=== PATIENT | female | born 1990 | race Caucasian/White ===

== ENCOUNTER 2019-11-10 07:38 | Inpatient (IN) ==
[2019-11-10] MEDS ORDERED: OXYTOCIN 30 UNITS/500 ML BAG IV PRN ×3 (08:18→16:00)
[2019-11-10 08:45] LABS: Hematocrit (blood only) 36.7 % (37-47); Hemoglobin 12.5 g/dL (12.0-16.0); Mean Corpuscular Hemoglobin 33.4 pg (25-34); Mean Corpuscular Volume 98.1 fL (80-100); Mean Platelet Volume 10.7 fL (7.4-10.4); Platelet Count 183 K/uL (130-400); RDW Coefficient of Variation 13.5 % (11.5-14.5); RDW Standard Deviation 48.2 fL (36.4-46.3); Red Blood Count 3.74 M/uL (4.2-5.4); White Blood Count 10.04 K/uL (4.8-10.8)
[2019-11-10 08:51] LABS: Mean Corpuscular Hgb Conc 34.1 g/dL (32-36)
--- NOTE | 2019-11-10 08:57 | History & Physical Report ---
Date of Service November 10, 2019 Assessment & Plan (1) : Morris Marie is a 28 y/o female ; at 40 weeks 0 days via certain LMP; - previous history of precipitous delivery - will admit for induction of labor - will start Pitocin at 1 milliunit with advancement by 2 as needed for augmentation of labor - does want epidural for pain control Admission and Anticipated Discharge Date Admission Date: November 10, 2019 History of Present Illness Primary Care Provider: NO PCP Morris Marie is a 28 y/o female ; at 40 weeks 0 days via certain LMP; no complications with this ; frequently attended OB appointments; no contractions; good movement; no fluid loss; no vaginal blood loss Labs: (11/10/19) Blood type: A+ Antibody screen: negative H.5 Hct: 36.7 WBC: 10.04 Plt: 183 Rubella: immune VDRL/RPR: nonreactive Gonorrhea: not detected Chlamydia: not detected HIV: negative HbSAg: negative GBS negative passed Glucose tolerance x2 Allergies Allergy/AdvReac Type Severity Reaction Status Date / Time Sulfa (Sulfonamide Allergy Hives Verified 11/09/19 15:17 Antibiotics) Home Medications Home Medications Medication Instructions Recorded Confirmed Type prenat.vits,pasha,[id number] 1 tab PO DAILY 04/01/19 11/10/19 History Past Med/Surg History Medical History Encounter for anatomic survey Hx of ovarian cyst Subchorionic hemorrhage in first trimester Family History Mother Schizophrenia Social History Preferred Language: Stateless Communication Ability: Effective Beliefs That Will Affect Care: None marital status: marital status details: Jerry Marie (31) [phone] Current Living Situation: Spouse Current Living Situation Comment: Lives with and 2 daughters current occupational status: employed current occupation: teacher- [employer] Other Information That Helps Us Care for You: No Feels Safe at Home: Yes Safety Concerns: Feels Safe At This Time Smoking Status: Never smoker Do You Dip or Chew Tobacco: No ; Second Hand Exposure: No ; Tobacco Cessation Education Requested by Patient: No Hx Alcohol Use: No Hx Substance Use: No Review of Systems Review of Systems: Constitutional: denies fever; chills; sweats; headache Respiratory: denies shortness of breath, difficulty breathing Cardiac: denies chest pain; palpitations; chest pressure Breast: denies breast pain : denies dysuria Physical Exam Physical Exam: General: alert; oriented; no acute distress Cardiac: RRR; no m/g/r Respiratory: CTAB a/p; no wheezes/rales/rhonchi; no increased work of breathing; symmetrical chest rise; no respiratory distress Abdomen: soft; NT/ND; bowel sounds positive Lower extrem: no lower extremity edema or swelling; no deep calf pain; Cindi's sign negative b/l Genitourinary: OB Exam Monitor Tracing: + external FHT monitor used, + external uterine monitor used, + category I and + normal FHT variability deferred cervix check to Dr. Lynch's exam Results & Data Results & Data ([facility]) Vital Signs (Past 12 Hours) Vital Signs Temp Pulse Resp BP 11/10/19 07:57 36.7 C 81 16 113/74 11/10/19 07:46 81 113/74 Laboratory Results 11/10/19 Range/Units 08:32 WBC 10.04 (4.8-10.8) K/uL RBC 3.74 L (4.2-5.4) M/uL Hgb 12.5 (12.0-16.0) g/dL Hct 36.7 L (37-47) % MCV 98.1 (80-100) fL MCH 33.4 (25-34) pg MCHC 34.1 (32-36) g/dL RDW Std Deviation 48.2 H (36.4-46.3) fL RDW Coeff of Edda 13.5 (11.5-14.5) % Plt Count 183 (130-400) K/uL MPV 10.7 H (7.4-10.4) fL Medications Administered Current Inpatient Medications Lactated Ringer's (Lr) 1,000 mls @ 125 mls/hr IV .Q8H PRN; Protocol PRN Reason: L&D Protocol Stop: 11/12/19 08:17 Oxytocin (Pitocin) 30 units in 500 mls @ 333.333 mls/hr IV .Q1H30M PRN; Protocol PRN Reason: Bleeding Control Stop: 12/10/19 08:17 Oxytocin (Pitocin) 30 units in 500 mls @ 1 mls/hr IV .Q24H PRN; Protocol PRN Reason: Labor Induction/Augmentation Stop: 11/12/19 08:37 Supervising Physician Co-Signing Physician Notes Resident Physician Supervision Note: I interviewed and examined the patient. Discussed with Dr. Christianson and agree with findings and plan as documented in the note. Any exceptions or clarifications are listed here: admit for IOL for h/o rapid labor. Documented By: Jazzy Lynch DO Resident Activity Tracking Resident Involvement: Resident Care Provided Care Provided: OB Delivery
[2019-11-10] MEDS: LACTATED RINGER'S 1,000 ML IV PRN ×2 (09:23→11:53)
[2019-11-10] MEDS ORDERED: ePHEDrine sulfate 50 MG/ML AMP ONE (11:14)
[2019-11-10] MEDS ORDERED: BUPIVACAINE 0.25% 30 ML VIAL ONE (11:14)
[2019-11-10] MEDS ORDERED: fentaNYL citrate 100 MCG/2 ML VIAL ONE (11:14)
[2019-11-10] MEDS ORDERED: fentaNYL 2MCG/ML ROPIV 1.25MG/ML 100 ML BAG EPI ONE (11:15)
--- NOTE | 2019-11-10 11:46 | Anesthesiology Consultation ---
Date of Service November 10, 2019 Assessment & Plan Chart Review Chart Review: Acceptable Risk for Surgery and Patient NOT seen in Pre Admission Testing Consults Requested none ASA ASA2 Proposed Anesthesia Anesthesia Type: Labor Epidural Risk / Benefits Reviewed With: PT / POA / Parent / Guardian, Accepts Plan and Informed Consent Obtained History Height/Weight Height: 5 ft 6 in Weight: 67.472 kg Allergies Allergy/AdvReac Type Severity Reaction Status Date / Time Sulfa (Sulfonamide Allergy Hives Verified 11/09/19 15:17 Antibiotics) Medications Home Medications Medication Instructions Recorded Confirmed Last Taken prenat.vits,pasha,[id number] 1 tab PO DAILY 04/01/19 11/10/19 11/09/19 21:30 Active Medications Generic Name Dose Route Start Last Admin Trade Name Freq PRN Reason Stop Dose Admin Lactated Ringer's 1,000 mls @ 125 mls/hr 11/10/19 08:18 11/10/19 11:10 Lr IV 11/12/19 08:17 999 mls/hr .Q8H PRN Infusion L&D Protocol Protocol Oxytocin 30 units in 500 mls @ 7 mls/hr 11/10/19 08:38 11/10/19 11:06 Pitocin IV 11/12/19 08:37 0.42 units/hr .Q24H PRN 7 mls/hr Labor Induction/Augmentation Titration Protocol 0.42 UNITS/HR NPO Date Last Intake of Fluids: 11/10/19 Time Last Intake of Fluids: 11:43 Date Last Intake of Solids: 11/10/19 Time Last Intake of Solids: 07:00 Past Medical History Medical History Encounter for anatomic survey Hx of ovarian cyst Subchorionic hemorrhage in first trimester Exercise / Class Metabolic Activity II 4-5 Yardwork/Stairs/Walk up hill Past Family History Family History Mother Schizophrenia Past Anesthesia History No Hx of Anesthesia Complications History of PONV No Hx of PONV Social History Smoking Status: Never smoker Do You Dip or Chew Tobacco: No Hx Alcohol Use: No Hx Substance Use: No Review of Systems Patient denies history of abnormal bleeding or bleeding disorder. Patient denies active use of anticoagulants other than low dose aspirin. Patient denies numbness, tingling or weakness in lower extremities. Negative for chest pain or shortness of breath. Physical Exam Vital Signs Last Vital Signs Temp 36.7 C 11/10/19 07:57 Pulse 78 11/10/19 10:49 Resp 20 11/10/19 10:49 BP 108/68 11/10/19 10:49 Constitutional not obese (Gravid uterus) ENMT Mouth: no TMJ abnormality and oral opening not small Thyromental Distance: > or= 3.5 Finger Breadths Mallampati Class: II Neck normal visual inspection; neck extension not limited Respiratory normal respiratory effort Auscultation: lungs clear to auscultation bilaterally Cardiovascular Rate/Rhythm: regular rate and regular rhythm Heart Sounds: no murmur Neurologic moves all extremities Motor/Sensory: no sensory deficit Psychiatric Orientation: alert and oriented x 3 Testing Laboratory Results 11/10/19 08:32
[2019-11-10] MEDS ORDERED: DiphenhydrAMINE HCL 50 MG/ML VIAL IV PRN (12:28)
[2019-11-10] MEDS ORDERED: fentaNYL 2MCG/ML ROPIV 1.25MG/ML 100 ML BAG EPI PRN (12:28)
[2019-11-10] MEDS ORDERED: NALOXONE HCL 1 MG in SODIUM CHLORIDE 0.9% 1000ML 1,000 ML IV PRN (12:28)
[2019-11-10] MEDS ORDERED: NALOXONE HCL 0.4 MG/1 ML VIAL/CARP IV PRN (12:28)
[2019-11-10] MEDS ORDERED: ePHEDrine sulfate 50 MG/ML AMP IV PRN (12:28)
[2019-11-10] MEDS ORDERED: ONDANSETRON INJ 2 MG/ML 2 ML VIAL IV PRN (12:28)
[2019-11-10] MEDS ORDERED: NALBUPHINE HCL INJ 10 MG/ML AMP IV PRN (12:28)
--- NOTE | 2019-11-10 13:33 | Obstetrical Progress Note ---
Date of Service November 10, 2019 Subjective Feeling better after epidural. FHT Cat 1 Proberta Q 2 SVE 4/80/-1 AROM clear pink fluid. Small amount of bloody show from cervix exam. Continue to monitor, anticipate . Results & Data Vital Signs (Past 12 Hours) Vital Signs Temp Pulse Resp BP Pulse Ox 11/10/19 13:26 59 L 100 11/10/19 13:22 63 109/70 11/10/19 13:21 62 100 11/10/19 13:16 58 L 100 11/10/19 13:11 73 100 11/10/19 13:07 61 100/53 L 11/10/19 13:06 62 100 11/10/19 13:01 58 L 100 11/10/19 12:56 59 L 100 11/10/19 12:55 65 90 11/10/19 12:51 59 L 100 11/10/19 12:50 77 110/56 L 11/10/19 12:46 57 L 100 11/10/19 12:41 66 100 11/10/19 12:36 58 L 100 11/10/19 12:35 73 121/58 L 11/10/19 12:31 80 121/70 99 11/10/19 12:29 79 92/55 L 11/10/19 12:26 92 H 100 11/10/19 12:21 97 H 99 11/10/19 12:19 66 128/63 11/10/19 12:18 80 121/60 11/10/19 12:16 84 126/60 99 11/10/19 12:13 75 108/59 L 11/10/19 12:11 84 99/56 L 99 11/10/19 12:09 79 103/55 L 11/10/19 12:08 81 119/60 11/10/19 12:06 36.9 C 69 16 115/72 99 11/10/19 12:01 66 99 11/10/19 12:00 78 114/67 11/10/19 11:56 89 100 11/10/19 11:51 72 99 11/10/19 10:49 78 20 108/68 11/10/19 10:34 75 106/68 11/10/19 10:19 69 20 108/72 11/10/19 10:03 68 16 108/64 11/10/19 07:57 36.7 C 81 16 113/74 11/10/19 07:46 81 113/74 PG Care Time/CCT Total # of Minutes Spent Total Time Spent with Patient: Total time spent is greater than 50% in coordination of care (as documented) at patient's floor/unit and/or counseling patient: Coding Level of Care Code None
--- NOTE | 2019-11-10 15:26 | Delivery Summary ---
Vaginal Delivery Summary Date of Service November 10, 2019 Vaginal Delivery Summary Vaginal Delivery Summary: Pre-delivery diagnoses: 28yo @ 40 0/7, IOL for h/o quick labors Post-delivery diagnoses: same Procedure: spontaneous vaginal delivery, repair of first degree perineal laceration Surgeon: Jazzy Lynch DO Complications: none Findings: Viable male . Apgars: 9/10. Weight pending, please see nursery records Estimated blood loss: 300ml Description of delivery: The patient progressed to complete with epidural anesthesia. She then began to push. She spontaneously vaginally delivered a viable from the cephalic presentation. The head delivered in STEPHEN position. No nuchal cord was noted. The anterior shoulder delivered, followed by the posterior shoulder, followed by the body. The baby was placed on mother's abdomen and a spontaneous cry was heard. Delayed cord clamping was employed, and the cord was doubly clamped and cut. Cord blood was obtained. The placenta was delivered spontaneously intact with a 3-vessel cord. The u terus and vagina were swept of clots and debris. IV pitocin was given. The uterus became firm. The cervix, vagina, and perineum were inspected and a first degree perineal lacerations was noted and repaired in standard fashion with 3-0 vicryl. Excellent hemostasis was observed. The mother and baby are recovering in stable and good condition in the room. Sponge, needle and instrument counts were correct x 2. Jazzy Lynch DO [facility] Vaginal Delivery Charge Vaginal Delivery Codes: 02011 global code for the antepartum, delivery, and post-
[2019-11-10] MEDS ORDERED: BENZOCAINE 20% AER SPR 82.5 GM CAN EXT PRN (16:00)
[2019-11-10] MEDS ORDERED: HYDROCORTISONE ACETATE 25 MG SUPP PR PRN (16:00)
[2019-11-10] MEDS ORDERED: DIPHTHERIA/TETANUS/PERTUSSIS 0.5 ML SYR/VIAL IM ONE (16:00)
[2019-11-10] MEDS ORDERED: ACETAMINOPHEN 325 MG TAB PO PRN (16:00)
[2019-11-10] MEDS ORDERED: bisacodyL 10 MG SUPP PR PRN (16:00)
[2019-11-10] MEDS ORDERED: SUPERCREAM 0.870% 15 GM JAR EXT PRN (16:00)
--- NOTE | 2019-11-10 16:17 | Anesthesia Procedure Note ---
Date of Service November 10, 2019 Anesthesia Post Epidural Note Vital Signs Vital Signs: Temp Pulse Resp BP Pulse Ox 36.3 C L 55 L 20 100/56 L 93 11/10/19 15:38 11/10/19 16:05 11/10/19 15:38 11/10/19 16:05 11/10/19 15:21 Pain Intensity Bilateral Abdomen: Pain Intensity: 0 Notes Mental Status: alert / awake / arousable and participated in evaluation Nausea / Vomiting: adequately controlled Pain: adequately controlled Airway Patency, RR, SpO2: stable & adequate BP & HR: stable & adequate Hydration State: stable & adequate Neuraxial Anesthesia: was administered and sensory block is resolving Anesthetic Complications: no major complications apparent and Pt Satisfied with anesthetic care Epidural: Removed without complications and With tip intact Notes: Epidural site clean, dry and intact. No signs of edema, erythema or bruising at insertion site. Pt instructed to request anesthesia if she has residual lower extremity numbness or if she develops lower extremity pain or weakness, back pain or headache.
[2019-11-10] MEDS: IBUPROFEN 600 MG TAB PO PRN ×2 (17:18→21:48)
[2019-11-10] MEDS: DOCUSATE SODIUM 100 MG CAP PO SCH (20:04)
--- NOTE | 2019-11-11 05:49 | Obstetrical Progress Note ---
Date of Service <Inocente Christianson MD - Last Filed: 11/11/19 07:27> November 11, 2019 Assessment & Plan <Inocente Christianson MD - Last Filed: 11/11/19 07:27> (1) : PPD#1: - doing well, tolerating oral intake, ambulating well - continue routine care - after discharge will have follow-up in [address] Lynch Subjective <Inocente Christianson MD - Last Filed: 11/11/19 07:27> Morris Marie is a 28 y/o female ; PPD #1 following spontaneous vaginal delivery at 40 weeks; doing well this morning; minimal abdominal cramping/pain; voiding well; tolerating meals overnight; and able to ambulate some; some persistent spotting with intermittent improvement this morning. Having some leg pain, describes it as more like she pulled a muscle than true pain. Review of Systems Constitutional: denies fever; chills; sweats; headache Respiratory: denies shortness of breath, difficulty breathing Cardiac: denies chest pain; palpitations; chest pressure Breast: denies breast pain : denies dysuria Physical Exam <Inocente Christianson MD - Last Filed: 11/11/19 07:27> General: alert; oriented; no acute distress Cardiac: RRR; no m/g/r Respiratory: CTAB a/p; no wheezes/rales/rhonchi; no increased work of breathing; symmetrical chest rise; no respiratory distress Abdomen: soft; NT/ND; bowel sounds positive Uterus: uterine fundus firm; palpable 2cm below umbilicus Lower extrem: no lower extremity edema or swelling; no deep calf pain; Cindi's sign negative b/l Results & Data <Inocente Christianson MD - Last Filed: 11/11/19 07:27> Vital Signs (Past 12 Hours) Vital Signs Temp Pulse Resp BP 11/11/19 03:50 36.7 C 76 18 103/66 11/11/19 00:00 36.6 C 69 18 97/60 L 11/10/19 20:15 36.5 C 66 18 112/66 11/10/19 18:16 36.8 C 86 20 91/64 L Laboratory Results 11/10/19 Range/Units 08:32 WBC 10.04 (4.8-10.8) K/uL RBC 3.74 L (4.2-5.4) M/uL Hgb 12.5 (12.0-16.0) g/dL Hct 36.7 L (37-47) % MCV 98.1 (80-100) fL MCH 33.4 (25-34) pg MCHC 34.1 (32-36) g/dL RDW Std Deviation 48.2 H (36.4-46.3) fL RDW Coeff of Edda 13.5 (11.5-14.5) % Plt Count 183 (130-400) K/uL MPV 10.7 H (7.4-10.4) fL Medications Administered Current Inpatient Medications Acetaminophen (Tylenol) 650 mg PO Q6H PRN PRN Reason: Pain/JORGE/Fever Stop: 12/10/19 15:59 Benzocaine (Dermoplast Pain Relieving [place]) 1 appln EXT PRN PRN PRN Reason: Perineal Discomfort Stop: 12/10/19 15:59 Last Admin: 11/10/19 20:04 Dose: 82.5 appln Documented by: Bisacodyl (Dulcolax) 10 mg [place] DAILY PRN PRN Reason: No BM on 2nd post- day Stop: 12/10/19 15:59 Cocaine HCl (Supercream 0.870%) 1 gm EXT BID PRN PRN Reason: Hemorrhoidal Inflammation Stop: 11/24/19 15:59 Diphenhydramine HCl (Benadryl) 25 mg IV Q6H PRN PRN Reason: Itching Stop: 11/11/19 12:27 Docusate Sodium (Colace) 100 mg PO DAILY@08,21 BEATA Stop: 12/10/19 20:59 Last Admin: 11/10/19 20:04 Dose: 100 mg Documented by: Ephedrine Sulfate (Ephedrine Sulfate) 10 mg IV Q5M PRN PRN Reason: Hypotension Stop: 11/11/19 12:27 Hydrocortisone (Anusol Hc) 25 mg [place] BID PRN PRN Reason: Hemorrhoidal Inflammation Stop: 12/10/19 15:59 Lactated Ringer's (Lr) 1,000 mls @ 125 mls/hr IV .Q8H PRN; Protocol PRN Reason: L&D Protocol Stop: 11/12/19 08:17 Last Infusion: 11/10/19 12:20 Dose: 125 mls/hr Documented by: Oxytocin (Pitocin) 30 units in 500 mls @ 333.333 mls/hr IV .Q1H30M PRN; Protocol PRN Reason: Bleeding Control Stop: 12/10/19 08:17 Last Admin: 11/10/19 15:10 Dose: 59.94 units/hr, 999 mls/hr Documented by: Oxytocin (Pitocin) 30 units in 500 mls @ 7 mls/hr IV .Q24H PRN; Protocol PRN Reason: Labor Induction/Augmentation Stop: 11/12/19 08:37 Last Titration: 11/10/19 15:15 Dose: Infused Documented by: Naloxone HCl 1 mg/ Sodium (Chloride) 1,002.5 mls @ 50 mls/hr IV .Q20H3M PRN PRN Reason: itching or nausea Stop: 11/11/19 12:27 Oxytocin (Pitocin) 30 units in 500 mls @ 333.333 mls/hr IV .Q1H30M PRN; Protocol PRN Reason: Bleeding Control Stop: 12/10/19 15:59 Ibuprofen (Motrin) 600 mg PO Q4H PRN PRN Reason: Pain/JORGE/Cramping/Fever Stop: 12/10/19 15:59 Last Admin: 11/10/19 21:48 Dose: 600 mg Documented by: Nalbuphine HCl (Nubain) 5 mg IV Q10M PRN PRN Reason: itching or nausea Stop: 11/11/19 12:27 Naloxone HCl (Narcan) 0.1 mg IV UD PRN PRN Reason: Respiratory Depression Stop: 11/11/19 12:27 Ondansetron HCl (Zofran) 4 mg IV Q6H PRN PRN Reason: Nausea And Vomiting Stop: 11/11/19 12:27 Prenat Multivit/[employer]/Iron/Folic Ac ( Vitamin) 1 tab PO DAILY@08 BEATA Stop: 12/11/19 07:59 Ropivacaine (Epidural (L&D)) 100 ml EPI PRN PRN; Protocol PRN Reason: Pain R/T Labor Stop: 11/11/19 12:27 <Jazzy Lynch, DO - Last Filed: 11/11/19 07:33> Co-Signing Physician Notes Resident Physician Supervision Note: I was present with Dr. Christianson during the history and exam. I discussed the case with the resident and agree with the findings and plan as documented in the note. Any exceptions or clarifications are listed here: PPD#1 doing well. Would like to go home. Bilateral calf achiness - no swelling, no ropiness. Discussed with patient that if this pain does not improve when she is up and moving today, to notify RN. Documented By: Jazzy Lynch, DO Resident Activity Tracking <Inocente Christianson MD - Last Filed: 11/11/19 07:27> Resident Involvement: Resident Care Provided Care Provided: OB Delivery
[2019-11-11] MEDS: IBUPROFEN 600 MG TAB PO PRN ×2 (06:51→12:27)
[2019-11-11 07:00] LABS: Hematocrit (blood only) 37.1 % (37-47); Hemoglobin 12.2 g/dL (12.0-16.0); Mean Corpuscular Hemoglobin 32.4 pg (25-34); Mean Corpuscular Hgb Conc 32.9 g/dL (32-36); Mean Corpuscular Volume 98.4 fL (80-100); Mean Platelet Volume 10.7 fL (7.4-10.4); Platelet Count 151 K/uL (130-400); RDW Coefficient of Variation 13.5 % (11.5-14.5); RDW Standard Deviation 48.3 fL (36.4-46.3); Red Blood Count 3.77 M/uL (4.2-5.4); White Blood Count 15.65 K/uL (4.8-10.8)
[2019-11-11] MEDS ORDERED: PRENATAL VITAMIN 1 TAB PO SCH (08:00)
[2019-11-11] MEDS: DOCUSATE SODIUM 100 MG CAP PO SCH (08:46)
== END 2019-11-11 17:40 | disposition home or self-care (01) | DRG 807 ==
LOC: 4S1 07:38 → 4S2 18:02